=== PATIENT | male | born 1960 | race African-American/Black ===

== ENCOUNTER 2016-08-27 01:12 | Emergency (ER) | payer MEDICAID, OTHER ==
[~2016-08-27] VITALS: Ht 182.9 cm; Wt 84.5 kg
[~2016-08-27 01:12] MED LIST: CYCL-319 PO; HYDR-3720 PO; IBUP-1542 PO; IBUP800T25 PO; METH-70 PO; OXYC-283 PO
[2016-08-27 01:15] VITALS: Ht 182.9 cm; Wt 84.5 kg
[2016-08-27] MEDS ORDERED: KETOROLAC 60 MG INJ IM STA (05:40)
--- NOTE | 2016-08-27 06:31 | RADRPT ---
PROCEDURE: LEFT ELBOW - 3 VIEWS CLINICAL INDICATION: 55-year-old male with left elbow pain. TECHNIQUE: AP, lateral and oblique views of the left elbow were obtained. The images were viewed on a PACS workstation. COMPARISON: None. FINDINGS: There is a normal appearing anterior fat pad. There is no evidence for an acute fracture or disloca tion. There is a olecranon spur noted. The bone marrow mineralization is within normal limits. No radiopaque foreign body is seen. IMPRESSION: 1. No acute fracture or dislocation. 2. Olecranon spur. .Les Barfield MD, Date Time Electronically viewed and signed by .Les Barfield MD, on 08/27/2016 06:31 .Leslie/
[2016-08-27] MEDS ORDERED: TRAM50TA2 PO (06:37)
[2016-08-27] MEDS ORDERED: NAPR-260 PO (06:37)
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
== END 2016-08-27 06:51 | disposition home or self-care (01) ==
LOC: FTE 01:12
DX: S59.902A Unspecified injury of left elbow, initial encounter (principal); W22.8XXA Striking against or struck by other objects, initial encounter; Y92.9 Unspecified place or not applicable
CPT/HCPCS: 73080; J1885; 96372

== ENCOUNTER 2017-01-29 20:14 | Emergency (ER) | payer MEDICAID ==
[~2017-01-29] VITALS: Ht 185.4 cm; Wt 83.0 kg
[~2017-01-29 20:14] MED LIST changes: -METH-70 PO; +METH750T93 PO; +NAPR-260 PO; +TRAM50TA2 PO
[2017-01-29 20:15] VITALS: Ht 185.4 cm; Wt 83.0 kg
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
[2017-01-29] MEDS ORDERED: morphine 10 MG INJ IM ONE (21:30)
--- NOTE | 2017-01-29 22:41 | RADRPT ---
PROCEDURE: XR hand. CLINICAL INDICATION: Trauma TECHNIQUE: AP, lateral and oblique views of the right hand was obtained. COMPARISON: There are no similar studies submitted for comparison. FINDINGS: There is normal bone mineralization. There is no acute fracture or dislocation. No osseous erosions are identified. The joint spaces are within normal limits. There is no soft tissue swelling. IMPRESSION: No acute fracture or dislocation. RPTAT: HIKT .Yfn Wen MD, MD Date Time Electronically viewed and signed by .Yfn Wen MD, MD on 01/29/2017 22:41 .T/
--- NOTE | 2017-01-29 22:42 | RADRPT ---
PROCEDURE: XR hand. CLINICAL INDICATION: Trauma TECHNIQUE: AP, lateral and oblique views of the left hand was obtained. COMPARISON: There are no similar studies submitted for comparison. FINDINGS: There is normal bone mineralization. There is no acute fracture or dislocation. No osseous erosions are identified. The joint spaces are within normal limits. There is no soft tissue swelling. IMPRESSION: No acute fracture or dislocation. RPTAT: HIKT .Yfn Wen MD, MD Date Time Electronically viewed and signed by .Yfn Wen MD, MD on 01/29/2017 22:41 .T/
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
--- NOTE | 2017-01-29 22:52 | RADRPT ---
PROCEDURE: CT HEAD WITHOUT CONTRAST: CLINICAL INDICATION: 56 years of age male, pain. COMPARISON: None TECHNIQUE: CT of the head was performed without IV contrast. Dose information: The estimated radiation dose (CTDIvol mGy) for each series in this exam is 40.5 . The estimated cumulative dose (DLP mGy-cm) is 720 . FINDINGS: Parenchyma: Negative for evidence of acute intracranial hemorrhage, mass effect or large territory i nfarct. Ventricles and extra-axial spaces: Appropriate for age. Visualized paranasal sinuses: Clear. Mastoid air cells: Clear. Bones: No focal abnormality. Additional comment: None. IMPRESSION: Negative for evidence of an acute abnormality. Negative for acute intracranial hemorrhage or mass e ffect. RPTAT: HCTS Physician Arminda Date Time Electronically viewed and signed by Physician Arminda on 01/29/2017 22:52 /
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
[2017-01-29] MEDS ORDERED: IBUP400T22 PO (23:11)
[2017-01-29 23:21] VITALS: BP 137/67; PULSE 66; RESP 18; TEMP 98.3
[2017-01-29] MEDS ORDERED: HYDR-906 PO (23:42)
== END 2017-01-29 23:23 | disposition home or self-care (01) ==
LOC: FTE 20:14
DX: S59.902A Unspecified injury of left elbow, initial encounter (principal); R51 Headache; V19.49XA Pedal cycle driver injured in collision with other motor vehicles in traffic accident, initial encounter
CPT/HCPCS: 29105; 70450; 72125; 72128; 73080; 73130; 96372; J2270; Z7502; Z7610

== ENCOUNTER 2017-06-01 11:20 | Inpatient (IN) | payer MEDICAID, OTHER ==
[~2017-06-01] VITALS: Ht 188 cm; Wt 81.7 kg
[~2017-06-01 11:20] MED LIST changes: +HYDR-906 PO; +IBUP400T22 PO
[2017-06-01 11:28] VITALS: Ht 188 cm; Wt 81.7 kg
[2017-06-01 12:32] LABS: BASOPHILS % 0.4 % (0.0-2.0); EOSINOPHILS # 0.1 10^3/ul (0.0-0.5); EOSINOPHILS % 1.5 % (0.0-7.0); HEMATOCRIT 41.8 % (42.0-52.0); HEMOGLOBIN 14.3 g/dl (14.0-18.0); LYMPHOCYTES # 1.8 10^3/ul (0.8-2.9); LYMPHOCYTES % 23.9 % (15.0-51.0); MEAN CORPUSCULAR HEMOGLOBIN 29.7 pg (29.0-33.0); MEAN CORPUSCULAR HGB CONC 34.2 g/dl (32.0-37.0); MEAN CORPUSCULAR VOLUME 86.9 fl (82.0-101.0); MONOCYTE # 0.6 10^3/ul (0.3-0.9); MONOCYTES % 7.6 % (0.0-11.0); NEUTROPHIL # 4.9 10^3/ul (1.6-7.5); NEUTROPHILS % 66.5 % (39.0-77.0); PLATELET COUNT 259 10^3/UL (140-415); RED BLOOD COUNT 4.81 10^6/ul (4.70-6.10); RED CELL DISTRIBUTION WIDTH 12.6 % (11.5-14.5); WHITE BLOOD COUNT 7.4 10^3/ul (4.8-10.8)
[2017-06-01 12:56] LABS: ANION GAP 13 (8-16); BLOOD UREA NITROGEN 10 mg/dl (7-20); CALCIUM 8.9 mg/dl (8.4-10.2); CARBON DIOXIDE 24 mmol/L (21-31); CHLORIDE 103 mmol/L (97-110); CREATININE 1.14 mg/dl (0.61-1.24); GLUCOSE 113 mg/dl (70-220); POTASSIUM 4.1 mmol/L (3.5-5.1); SODIUM 136 mmol/L (135-144)
[2017-06-01] MEDS ORDERED: ASPIRIN (EC) 325 MG TAB PO ONE (13:00)
[2017-06-01 13:07] LABS: TROPONIN-I < 0.012 ng/ml (0.00-0.12)
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
--- NOTE | 2017-06-01 15:17 | HP ---
Date/Time of Note Date/Time of Note DATE: 06/01/17 TIME: 15:13 Assessment/Plan VTE Prophylaxis VTE Prophylaxis Intervention: LMWH Assessment/Plan Chief Complaint/Hosp Course 56 yo male withotu significant pmh who presents with progressive dyspena on exertion over past weeks. EKG notable for biphasic TWI in precordial leads. Troponin negative. His presentation is most concerning for coronary artery disease causing angina. Lung disease a possibility but much less likely - TTE - Aspirin, statin - Nuclear stress test per Dr Bowden, further workup pending result Problems: HPI/ROS Admit Date/Time Admit Date/Time Hx of Present Illness 56 yo male without significant PMH presenting with dypsnea on exertion Patient in usual state of health until a few weeks ago when noticed himself becoming increasingly winded with exertion. He is used to exercsiing most days , rides bike, walks long distances etc. Now he is markedly limited in these, unable to exert himself because feels out of breath. Endorses some chest "tightness" but not signfiicant pain it seems. Denies any edema. No infectious symptmos of cough or fever or sputum etc. Feels well at rest. Came today because can't tolerate symptmos, does not seem like he had any acute worsenign today. PMH/Family/Social Past Medical History Medical History: no pertinent history Past Surgical History Past Surgical Hx: no surgical history Social History Alcohol Use: none Smoking Status: Never smoker Drug Use: none Exam/Review of Systems Vital Signs Vitals Vital Signs Date Time Temp Pulse Resp B/P Pulse Ox O2 Delivery O2 Flow Rate FiO2 06/01/17 14:31 77 18 134/98 100 Room Air 06/01/17 11:28 97.9 Exam Constitutional: alert, oriented, well developed Psych: nl mood/affect, no complaints Head: atraumatic, normocephalic Eyes: EOMI, PERRL, nl conjunctiva, nl lids, nl sclera ENMT: nl external ears & nose, nl lips & teeth, nl nasal mucosa & septum Neck: non-tender, supple Respiratory: clear to auscultation, normal air movement Cardiovascular: nl pulses, regular rate and rhythm Gastrointestinal: nl liver, spleen, non-tender, soft Musculoskeletal: nl extremities to inspection Extremities: normal pulses Neurological: INCIDENT RESPONSE CONSULTANT II-XII intact, nl mental status, nl speech, nl strength Skin: nl turgor, No rash or lesions Lymph: nl lymph nodes Labs Result Diagram: 06/01/17 1216 06/01/17 1216 LINDA MEEKS MD Jun 01, 2017 15:17
[2017-06-01] MEDS ORDERED: NACL 0.9% 3 ML SYG IV SCH (15:30)
[2017-06-01 15:44] LABS: BARBITURATES Negative (NEGATIVE); BENZODIAZEPINES Negative (NEGATIVE); CANNABINOIDS Negative (NEGATIVE); COCAINE Negative (NEGATIVE); OPIATES Negative (NEGATIVE)
[2017-06-01 16:00] VITALS: TEMP 98.2
--- NOTE | 2017-06-01 16:54 | RADRPT ---
PROCEDURE: XR bilateral hands CLINICAL INDICATION: Trauma. TECHNIQUE: Bilateral hands, 3 views of each hand COMPARISON: None. FINDINGS: The bone mineralization is age appropriate. There is no acute fracture or dislocation of the bilateral hands. Osseous alignment appears maintain ed. There is no significant joint space narrowing. IMPRESSION: No acute fracture or dislocation of the bilateral hands. RPTAT: AAEE Tom Phan Physician Date Time Electronically viewed and signed by Tom Phan Physician on 06/01/2017 12:44 PH/
--- NOTE | 2017-06-01 16:54 | RADRPT ---
PROCEDURE: XR Chest. CLINICAL INDICATION: Shortness of breath. TECHNIQUE: Single frontal view of the chest was obtained. COMPARISON: None FINDINGS: The cardiomediastinal silhouette is normal in size. No focal consolidation is seen. No pleural effusion is seen. No definite pneumothorax. No acute osseous abnormality. IMPRESSION: No radiographic evidence of an acute cardiopulmonary process. RPTAT: AAEE Tom Phan Physician Date Time Electronically viewed and signed by Tom Phan Physician on 06/01/2017 12:40 /
--- NOTE | 2017-06-01 16:55 | RADRPT ---
Echocardiogram Report Patient Name: FELIX VILLANUEVA Gender: Male Date: 1960 Study Date: 01-Jun-2017 Yarn Inspector: Bartolo Jacobs [facility] Location: [facility] Ref. Physician: LINDA MEEKS Quality: Adequate Procedures: Transthoracic echocardiogram with complete 2D, M-Mode, and doppler examination. Indications: Angina. 2D/M Mode Doppler Measurement Value Normal Ranges Measurement Value Normal Ranges LVIDd 2D 4.4 3.5 - 5.6 cm AV Peak Cristino 1.2 m/sec LVIDs 2D 2.9 2.1 - 4.1 cm AV Peak PG 6.0 mmHg FS 2D 35.0 % LVOT Peak Cristino 1.1 m/sec LVPWd 2D 1.1 0.6 - 1.1 cm LVOT Peak PG 5.0 mmHg IVSd 2D 1.1 0.6 - 1.1 cm MV E Peak Cristino 0.6 m/sec IVS/LVPW 2D 1.0 MV A Peak Cristino 0.6 m/sec AoR Diam 2D 2.4 2.0 - 3.7 cm MV E/A 1.0 LA/Ao 2D 1 0 - 1 MV Decel Time 155 msec EDV 2D 85.2 cm3 MV E/A 1.0 ESV 2D 23.4 cm3 TR Peak Cristino 2.5 m/sec LA Dimen 2D 3.2 2.3 - 4.0 cm TR Peak PG 26.0 mmHg RVSP 29.0 mmHg Findings Left Ventricle: Normal left ventricular systolic function. Normal left ventricular cavity size. Left ventricular wall thickness upper limits of normal. Ejection fraction is visually estimated at 65 %. Abnormal Diastolic Function. Right Ventricle: Normal right ventricular size. Normal right ventricular systolic function. Left Atrium: The left atrium is normal in size. Right Atrium: The right atrium is normal in size. Mitral Valve: Mild mitral leaflet calcification. Mild mitral annular calcification. Trace mitral regurgitation. Aortic Valve: Normal appearance of the aortic valve. No significant aortic stenosis or insufficiency. Tricuspid Valve: Normal appearance of the tricuspid valve. Estimated peak PA systolic pressure 29 mmHg. There is mild tricuspid regurgitation. Pulmonic Valve: Pulmonic valve not well visualized. There is mild pulmonic regurgitation. Pericardium: Normal pericardium with no significant pericardial effusion. Aorta: Normal aortic root. IVC: Normal size and normal respiratory collapse consistent with normal right atrial pressure. Conclusions Normal left ventricular systolic function. Normal left ventricular cavity size. Left ventricular wall thickness upper limits of normal. Ejection fraction is visually estimated at 65 %. Abnormal Diastolic Function. Mild mitral leaflet calcification. Mild mitral annular calcification. Trace mitral regurgitation. Normal appearance of the aortic valve. No significant aortic stenosis or insufficiency. Normal appearance of the tricuspid valve. Estimated peak PA systolic pressure 29 mmHg. There is mild tricuspid regurgitation. Electronically Signed By: Robin Bowden 01-Jun-2017 14:46:47 -0800 Patient Name: FELIX VILLANUEVA Study Date: 01-Jun-[id number]
--- NOTE | 2017-06-01 16:56 | CONS ---
DATE OF ADMISSION: 06/01/2017 DATE OF CONSULTATION: 06/01/2017 REFERRING PHYSICIAN: Dr. Rojas REASON FOR EVALUATION: Chest pain, abnormal EKG. HISTORY OF PRESENT ILLNESS: Mr. Todd is a 56-year-old gentleman with history of hypertension, pr ior history of chest pain and syncope. The patient stated he was in group home before. He has a history of amphetamine and cocaine use, although he recovered now. He is an avid exercise fanatic, biking u p to 60 miles a day, who noted over the last several weeks his tolerance became much less as he wasn 't biking as far as before. The patient said he had a runny nose and small infection 2 weeks ago an d now he presents to the hospital for evaluation of chest discomfort. His initial EKG was assessed to be an ST elevation myocardial infarction. I reviewed the EKG carefully with the emergency room d pascual as it does appear that the patient has ST elevation, but they are fairly diffuse, probably mor e consistent with pericarditis rather than true acute ischemic event. The patient is chest pain-xavier e at this particular moment. The patient reported that he had a stress test prior, but he does not believe that to be positive. The patient did not rule in for acute myocardial infarction right now. I think for now, conservative therapy is expected. I think that we'll facilitate for patient to h ave a stress test tomorrow. For now, we will continue therapy. I'm going to add a small dose of beta ramakrishna and aspirin to his regimen and follow expectantly. We'll continue to rule him out for acute myocardial infarction. PAST MEDICAL HISTORY: History of hypertension, the patient had a syncopal episode , prior hist ory of chest pain, self-report negative stress test, sometime ago, history of cocaine, amphetamine a buse in the past, possible history of depression. MEDICATIONS: Given here include aspirin. REVIEW OF SYSTEMS: CONSTITUTIONAL: The patient has no fevers, no chills, recent upper respiratory infection. HEENT: No changes in vision or hearing. CARDIAC: No chest pain reported now, but some dyspnea on exertion, progressive. RESPIRATORY: Short of breath. GASTROINTESTINAL: No nausea. GENITOURINARY: No dysuria, hematuria urination. NEUROLOGIC: No focal neurologic deficits PHYSICAL EXAMINATION: VITAL SIGNS: Temperature 97.9, heart rate 77, blood pressure 134/98. GENERAL: He is a well-nourished gentleman in no acute distress, alert and oriented x3, aware of his condition. HEAD: Normocephalic, atraumatic. Eyes anicteric. NECK: Supple. JVD 6-7 cm. There is no lymphadenopathy. HEART: Regular, soft holosystolic murmur at the apex. PMI is nondisplaced. I do not hear an S3. LUNGS: Coarse at bases. ABDOMEN: Distended, bowel sounds are present. There is no hepatosplenomegaly. EXTREMITIES: Show no clubbing, cyanosis, or edema. LABORATORY DATA: Showed white blood cells 7.4, hemoglobin is 14.3, platelets 253. His sodium 136, potassium 4.1. Troponin is negative at 0.012, creatinine is 1.14 ASSESSMENT AND PLAN: 1. Progressive dyspnea on exertion versus angina. This is a very atypical presentation. I think p ericarditis is still on the differential. We'll follow up with 2D echo. The patient will have a str ess test tomorrow. If he rules out for acute myocardial infarction, there is no indication for acut e left heart catheterization at this point as the patient does not really have a syndrome consistent with acute ST-elevation myocardial infarction. Aspirin, beta ramakrishna for now. 2. History of drug abuse. We'll send a U-tox and follow expectantly. Continue to monitor now. We will follow expectantly. 3. Shortness of breath. We'll follow up with a 2D echo and we'll continue to follow. Dictated By: LAKEISHA LORENZ MD ML/NTS Conf#: [id number] DID#: [id number] CC: THADDEUS IZQUIERDO; LINDA ROJAS MD;*EndCC*
[2017-06-01 18:07] LABS: CREATINE KINASE 155 IU/L (23-200)
[2017-06-01 18:27] LABS: CK-MB 0.43 ng/ml (0.0-2.4); TROPONIN-I < 0.012 ng/ml (0.00-0.12)
[2017-06-01 19:16] VITALS: PULSE 80
[2017-06-01 20:00] VITALS: BP 120/72; RESP 19
[2017-06-01 20:10] VITALS: PULSE 80
[2017-06-01] MEDS: ATORVASTATIN 40 MG TAB PO SCH (21:14)
[2017-06-02] VITALS (12 sets, daily range): BP systolic 114–125; BP diastolic 63–83; PULSE 66–89; RESP 18–20
[2017-06-02 08:14] LABS: CHOL/HDL RATIO 2.9 RATIO
[2017-06-02 08:20] LABS: ALBUMIN 3.2 g/dl (3.3-4.9); ALBUMIN/GLOBULIN RATIO 0.94; BILIRUBIN,INDIRECT 0.2 mg/dl (0-1.1); BILIRUBIN,TOTAL 0.2 mg/dl (0.2-1.3); CALCIUM 8.9 mg/dl (8.4-10.2); CREATININE 1.21 mg/dl (0.61-1.24); POTASSIUM 4.3 mmol/L (3.5-5.1); TOTAL PROTEIN 6.6 g/dl (6.1-8.1)
[2017-06-02] MEDS: ENOXAPARIN 30 MG/0.3 ML SYG SC SCH (08:36)
[2017-06-02] MEDS: REGADENOSON 0.4 MG/5 ML SYG ONE ×2 (12:17→12:55)
--- NOTE | 2017-06-02 13:01 | CONS ---
Date/Time of Note Date/Time of Note DATE: 06/02/17 TIME: 12:55 Assessment/Plan Assessment/Plan Chief Complaint/Hosp Course IMP: 1.chest pain/sob 2.abnl ecg-diffuseST elevations/ pericarditis 3.HTN 4.HL Recc: -Tele -serial ecg's -Continue asa -Continue statin -Lexiscan stress test today Problems: Consultation Date/Type/Reason Admit Date/Time Jun 01, 2017 at 13:28 Initial Consult Date chest pain Type of Consultation: cardiology Reason for Consultation chest pain Referring Provider: SUZIE BURRIS Exam/Review of Systems Vital Signs Vitals Vital Signs Date Time Temp Pulse Resp B/P Pulse Ox O2 Delivery O2 Flow Rate FiO2 06/02/17 12:18 66 06/02/17 11:35 97.5 18 118/83 97 06/01/17 18:00 Room Air Intake and Output 06/01/17 06/01/17 06/02/17 14:59 22:59 06:59 Intake Total 650 ml Balance 650 ml Exam Review of Systems: CONSTITUTIONAL: No fevers, chills. PULMONARY: No sob CARDIOVASCULAR: No chest pain/palpitations GASTROINTESTINAL: No nausea/vomiting. GENITOURINARY: No hematuria/dysuria. MUSCULOSKELETAL: No myagias/arthalgias. PSYCHIATRIC: The patient denies depression. NEUROLOGIC: No weakness Constitutional: alert Psych: no complaints Head: normocephalic ENMT: mucosa pink and moist Neck: jvd, supple Respiratory: diminished breath sounds (at bases/B) Cardiovascular: regular rate and rhythm Gastrointestinal: non-tender, soft Musculoskeletal: muscle tone (normal) Extremities: edema (none) Results Result Diagram: 06/01/17 1216 06/02/17 0656 Results 24 hrs Laboratory Tests Test 06/01/17 15:10 06/01/17 15:40 06/02/17 06:56 Urine Opiates Screen Negative Urine Barbiturates Negative Urine Amphetamines Screen Negative Urine Benzodiazepines Screen Negative Urine Cocaine Screen Negative Urine Cannabinoids Negative Creatine Kinase 155 Creatine Kinase Index 0.3 Creatinine Kinase MB (Mass) 0.43 Troponin I < 0.012 Sodium Level 139 Potassium Level 4.3 Chloride Level 102 Carbon Dioxide Level 30 Anion Gap 11 Blood Urea Nitrogen 10 Creatinine 1.21 Glucose Level 94 Hemoglobin A1c 5.6 Calcium Level 8.9 Total Bilirubin 0.2 Direct Bilirubin 0.00 Indirect Bilirubin 0.2 Aspartate Amino Transf (AST/SGOT) 19 Alanine Aminotransferase (ALT/SGPT) 22 Alkaline Phosphatase 61 Total Protein 6.6 Albumin 3.2 L Globulin 3.40 H Albumin/Globulin Ratio 0.94 Triglycerides Level 76 Cholesterol Level 146 LDL Cholesterol, Calculated 81 HDL Cholesterol 50 Cholesterol/HDL Ratio 2.9 Thyroid Stimulating Hormone (TSH) 0.847 Medications Medications Current Medications Enoxaparin Sodium (Lovenox) 30 mg DAILY SC Last administered on 06/02/17 08: 36; Admin Dose 30 MG; Start 06/02/17 at 09:00 Aspirin (Aspirin) 81 mg DAILY PO ; Start 06/02/17 at 09:00 Atorvastatin Calcium (Lipitor) 40 mg HS PO Last administered on 06/01/17 21: 14; Admin Dose 40 MG; Start 06/01/17 at 21:00 Influenza Virus Vaccine (Fluzone) 0.5 ml ONCE ONCE IM* ; Start 06/04/17 at 09: 00; Stop 06/04/17 at 09:01 CHRISTOPHER FITCH Jun 02, 2017 13:01
[2017-06-02] MEDS: ASPIRIN 81 MG TAB PO SCH (13:51)
--- NOTE | 2017-06-02 14:42 | RADRPT ---
PROCEDURE: Nuclear medicine myocardial perfusion scan CLINICAL INDICATION: Chest pain TECHNIQUE: 29.2 mCi of technetium 99m Cardiolite was administered for the stress study. 10.5 mCi of technetium 99m Cardiolite was administered for the resting study. The patient was stressed with 0 .4 mg of Lexiscan. Images were reviewed in the short axis, vertical long axis, and horizontal long axis views. Wall motion was assessed and ejection fraction was calculated as well. Images were revi ewed on a high-resolution PACS workstation. COMPARISON: None available FINDINGS: Left ventricular size is within normal limits. The stress tomographic images demonstrate a normal pattern of perfusion. The resting tomographic images demonstrate a similar pattern. There is no ev idence for reversible ischemia. Wall motion is normal. The ejection fraction is calculated at 49%. IMPRESSION: 1. Negative myocardial perfusion scan. 2. There is no evidence for reversible ischemia. 3. Normal wall motion with normal ejection fraction of 49%. RPTAT: AACC Physician Manjula Date Time Electronically viewed and signed by Physician Manjula on 06/02/2017 14:42 /
[2017-06-02 18:24] LABS: ADD UMIC NO; UR ASCORBIC ACID NEGATIVE (NEGATIVE); UR BILIRUBIN (Dip) NEGATIVE (NEGATIVE); UR BLOOD (Dip) NEGATIVE (NEGATIVE); UR CLARITY CLEAR (CLEAR); UR COLOR YELLOW (YELLOW); UR GLUCOSE (Dip) NEGATIVE (NEGATIVE); UR KETONES (Dip) NEGATIVE (NEGATIVE); UR LEUKOCYTE ESTERASE (Dip) NEGATIVE Leu/ul (NEGATIVE); UR NITRITE (Dip) NEGATIVE (NEGATIVE); UR SPECIFIC GRAVITY (Dip) 1.012 (1.003-1.030); UR TOTAL PROTEIN (Dip) NEGATIVE (NEGATIVE); UR UROBILINOGEN (Dip) NEGATIVE (NEGATIVE)
[2017-06-02] MEDS: ATORVASTATIN 40 MG TAB PO SCH (21:55)
[2017-06-02] MEDS: GUAIFENESIN/CODEINE 5ML CUP PO PRN (21:55)
[2017-06-03] VITALS (7 sets, daily range): BP systolic 111–123; BP diastolic 63–77; PULSE 61–80; RESP 18–20
[2017-06-03] MEDS: GUAIFENESIN/CODEINE 5ML CUP PO PRN ×3 (02:12→10:01)
--- NOTE | 2017-06-03 02:29 | CARRPT ---
DATE OF PROCEDURE: 06/02/2017 TYPE OF PROCEDURE: Lexiscan Cardiolite stress test, electrocardiogram portion. INDICATION: Chest pain, shortness of breath, assess for ischemia as well as abnormal electrocardiog shannan. BASELINE VITAL SIGNS AND ELECTROCARDIOGRAM: Pulse 63, blood pressure 122/94. Electrocardiogram rev eals normal sinus rhythm, rate of 77 with normal axis, normal intervals; J-point elevation with norm al concavity in the inferior and lateral as well as anterior leads, with biphasic T-wave abnormaliti es in the anterior precordial leads concerning for superimposed ischemia. PROCEDURE: After informed consent was obtained, the patient was brought to the [facility] cardiology department where he was placed on continuous O2 saturation monitoring, continuou s telemetry monitoring, and blood pressure cuff cycling every 3 to 5 minutes. The patient received Lexiscan infusion over 10 seconds followed by radiolabeled tracer. The patient's test was stopped d ue to completion of protocol. Maximum blood pressure during the test 135/91. Maximal heart rate du ring the test 99. ELECTROCARDIOGRAM FINDINGS: The patient did not develop any new Lexiscan-induced ST or T-wave melo es from baseline abnormalities. No documented PVCs. SYMPTOMS: The patient had complaints of mild shortness of breath, no chest pain during stress testi ng; resolved in recovery. IMPRESSION: 1. No Lexiscan-induced ST or T-wave changes from baseline abnormalities or diagnostic cardiac ische wayne. 2. No complaints of chest pain during stress testing. 3. Positive stress shortness of breath during stress test that resolved in recovery. 4. No documented premature ventricular contractions during stress testing. 5. Report of nuclear images to follow in separate dictation. Dictated By: CHRISTOPHER LEON/DALILA Conf#: [id number] DID#: [id number] CC: CHRISTOPHER FITCH MD; SUZIE BURRIS MD;*EndCC*
[2017-06-03] MEDS: ENOXAPARIN 30 MG/0.3 ML SYG SC SCH (09:57)
[2017-06-03] MEDS: ASPIRIN 81 MG TAB PO SCH (09:57)
--- NOTE | 2017-06-03 11:40 | CONS ---
Date/Time of Note Date/Time of Note DATE: 06/03/17 TIME: 11:38 Assessment/Plan Assessment/Plan Additional Assessment/Plan 1. Progressive dyspnea on exertion versus angina. This is a very atypical presentation - negative Stress test - I still think pericarditis is more likely. Med rx now. 2. History of drug abuse. We'll send a U-tox and follow expectantly. Continue to monitor now. We will follow expectantly. 3. Shortness of breath - etiology unclear. EF normal. 4. Abn ECG- no CP now, negative stress test. Consultation Date/Type/Reason Admit Date/Time Jun 01, 2017 at 13:28 Initial Consult Date Type of Consultation: cardiology Referring Provider: SUZIE BURRIS 24 HR Interval Summary Free Text/Dictation negative Stress test - I still think pericarditis is more likely. Med rx now. ROS: No fever, no chills, no nausea, no vomiting, no diarrhea/constipation No recent weight changes No chest pain, no PND, no orthopnea No dizziness, blurred vision No thirst, no heat or cold intolerance Exam/Review of Systems Vital Signs Vitals Vital Signs Date Time Temp Pulse Resp B/P Pulse Ox O2 Delivery O2 Flow Rate FiO2 06/03/17 08:17 98.0 71 18 123/77 98 06/01/17 18:00 Room Air Intake and Output 06/02/17 06/02/17 06/03/17 15:00 23:00 07:00 Intake Total 960 ml 500 ml Balance 960 ml 500 ml Exam General: WN/WD/NAD, AOx 3 HEENT: Unicetric/atraumatic/EOMI (follows commands) NECK: JVD elevated, no thyromegaly Lymph: no lymphadenopathy HEART: regular with no S3, II/ systolic murmur at apex LUNGS: Coarse sounds ABD: soft, NT, ND, +BS : Intact Neuro: non focal SKIN: chronic changes EXT: trace edema Results Result Diagram: 06/01/17 1216 06/02/17 0656 Results 24 hrs Laboratory Tests Test 06/02/17 18:00 Urine Color YELLOW Urine Clarity CLEAR Urine pH 8.0 Urine Specific [place] 1.012 Urine Ketones NEGATIVE Urine Nitrite NEGATIVE Urine Bilirubin NEGATIVE Urine Urobilinogen NEGATIVE Urine Leukocyte Esterase NEGATIVE Urine Hemoglobin NEGATIVE Urine Glucose NEGATIVE Urine Total Protein NEGATIVE Medications Medications Current Medications Enoxaparin Sodium (Lovenox) 30 mg DAILY SC Last administered on 06/03/17 09: 57; Admin Dose 30 MG; Start 06/02/17 at 09:00 Aspirin (Aspirin) 81 mg DAILY PO Last administered on 06/03/17 09:57; Admin Dose 81 MG; Start 06/02/17 at 09:00 Atorvastatin Calcium (Lipitor) 40 mg HS PO Last administered on 06/02/17 21: 55; Admin Dose 40 MG; Start 06/01/17 at 21:00 Influenza Virus Vaccine (Fluzone) 0.5 ml ONCE ONCE IM* ; Start 06/04/17 at 09: 00; Stop 06/04/17 at 09:01 Guaifenesin/ Codeine Phosphate (Robitussin Ac Liquid Cup) 15 ml Q4H PRN PO COUGH Last administered on 06/03/17 10:01; Admin Dose 15 ML; Start 06/02/17 at 21:00 LAKEISHA LORENZ MD Jun 03, 2017 11:40
--- NOTE | 2017-06-03 14:42 | DS ---
Date/Time of Note Date/Time of Note DATE: 06/03/17 TIME: 14:41 Discharge Summary Admission/Discharge Info Admit Date/Time Jun 01, 2017 at 13:28 Discharge Date/Time Discharge Diagnosis Dyspnea on exertion Patient Condition: Good Hx of Present Illness 56 yo male without significant PMH presenting with dypsnea on exertion Patient in usual state of health until a few weeks ago when noticed himself becoming increasingly winded with exertion. He is used to exercsiing most days , rides bike, walks long distances etc. Now he is markedly limited in these, unable to exert himself because feels out of breath. Endorses some chest "tightness" but not signfiicant pain it seems. Denies any edema. No infectious symptmos of cough or fever or sputum etc. Feels well at rest. Came today because can't tolerate symptmos, does not seem like he had any acute worsenign today. Hospital Course 56 yo male withotu significant pmh who presents with progressive dyspena on exertion over past weeks. EKG notable for biphasic TWI in precordial leads. Troponin negative. His presentation is most concerning for coronary artery disease causing angina. Lung disease a possibility but much less likely Patient was monitored and had no concerning symptoms. Biomarkers negative to exclude ACS. Underwent nuclear stress testing which showed no reversible ischemia. CXR normal, no hypoxia to suspect lung disease. TTE unremarkable. Not clear what was causing the patien'ts symptsom but he was encouraged to follow up with his primary doctor and Dr Bowden as an outpatient for further evaluation. Home Meds Discontinued Scripts Hydrocodone/Acetaminophen ([place] 5-325 Tablet) 1 Each Tablet, 1 TAB PO Q6H Y for PAIN, #7 TAB Prov:PATEL MARAVILLA PA-C 01/29/17 Ibuprofen* (Motrin*) 400 Mg Tab, 400 MG PO Q6, #30 TAB Prov:PATEL MARAVILLA PA-C 01/29/17 Naproxen* (Naprosyn*) 500 Mg Tablet, 500 MG PO BID Y for PAIN AND/OR INFLAMMATION, #30 TAB Prov:TANVI FISHER PA-C 08/27/16 Tramadol HCl (Tramadol HCl) 50 Mg Tablet, 50 MG PO Q4 Y for PAIN, #15 TAB Prov:TANVI FISHER PA-C 08/27/16 Cyclobenzaprine Hcl* (Cyclobenzaprine Hcl*) 10 Mg Tablet, 10 MG PO TID, #15 TAB Prov:RODRIGUEZ IVAN [employer] VEHICLE LICENCE EXAMINER 12/22/15 Ibuprofen* (Motrin*) 600 Mg Tab, 600 MG PO Q6H Y for PAIN AND OR ELEVATED TEMP, #30 TAB Prov:RODRIGUEZ IVAN MOTOR VEHICLE LICENCE EXAMINER 12/22/15 Oxycodone Hcl-Acetaminophen* (Percocet*) 7.5-325 Mg Tablet, 1 TAB PO Q4H Y for SEVERE PAIN LEVEL 7-10, #20 TAB Prov:RODRIGUEZ IVAN [employer] VEHICLE LICENCE EXAMINER 12/22/15 Ibuprofen* (Motrin*) 800 Mg Tab, 800 MG PO Q6H Y for PAIN AND OR ELEVATED TEMP, #30 TAB Prov:HANS IGNACIO DO 08/21/15 Methocarbamol* (Robaxin*) 750 Mg Tablet, 750 MG PO TID, #30 TAB Prov:HANS IGNACIO DO 08/21/15 Hydrocodone Bit-Acetaminophen* ([place]*) 7.5-325 Tablet, 2 TAB PO Q4H Y for PAIN , #30 TAB Prov:HANS IGNACIO DO 08/21/15 Primary Care Provider Care Physician No Primary Time spent on discharge: > 30 minutes Pending Labs Laboratory Tests Test 06/02/17 18:00 Urine Color YELLOW (YELLOW) Urine Clarity CLEAR (CLEAR) Urine pH 8.0 (5.0-9.0) Urine Specific [place] 1.012 (1.003-1.030) Urine Ketones NEGATIVEmg/dL (NEGATIVE) Urine Nitrite NEGATIVEmg/dL (NEGATIVE) Urine Bilirubin NEGATIVEmg/dL (NEGATIVE) Urine Urobilinogen NEGATIVEmg/dL (NEGATIVE) Urine Leukocyte Esterase NEGATIVELeu/ul (NEGATIVE) Urine Hemoglobin NEGATIVEmg/dL (NEGATIVE) Urine Glucose NEGATIVEmg/dL (NEGATIVE) Urine Total Protein NEGATIVEmg/dl (NEGATIVE) LINDA MEEKS MD Jun 03, 2017 14:42
[2017-06-04] MEDS ORDERED: INFLUENZA VIRUS VACCINE 0.5 ML (DISPENSING) IM* ONE (09:00)
== END 2017-06-03 15:17 | disposition home or self-care (01) | DRG 204 ==
LOC: FTE 11:20 → MS4 13:28
PROVIDERS: ADMIT Family Medicine; ATTEND Family Medicine
DX: R06.00 Dyspnea, unspecified (principal); I31.9 Disease of pericardium, unspecified; I10 Essential (primary) hypertension; I20.9 Angina pectoris, unspecified; F14.11 Cocaine abuse, in remission; F15.11 Other stimulant abuse, in remission
CPT/HCPCS: 36415; 71010; 78452; 80048; 80053; 80061; 80307; 81003; 82550; 82553; 83036; 84443; 84484; 85025; 93005; 93017; 93306; A9500; A9505; J1650; J2785